=== PATIENT | female | born 1980 | race Two or more races ===

== ENCOUNTER → 2017-04-29 | Outpatient (CLI) | payer OTHER ==
[2017-04-29 17:51] LABS: BASO # 0.1 10^3/uL (0.0-0.2); BASO % 1.2 % (0.0-1.0); EOS # 0.1 10^3/uL (0.0-0.50); EOS % 0.8 % (0.0-3.0); HEMATOCRIT 40.1 % (36.0-47.0); HEMOGLOBIN 12.8 g/dl (12.0-16.0); IMMATURE GRANULOCYTE % 0.3 % (0-3.0); LYMPH # 1.5 10^3/uL (1.5-4.5); LYMPH % 25.3 % (24.0-44.0); MEAN CORPUSCULAR HEMOGLOBIN 26.3 pg (27.0-33.0); MEAN CORPUSCULAR HGB CONC 31.9 g/dl (32.0-36.5); MEAN CORPUSCULAR VOLUME 82.3 fl (80.0-96.0); MONO # 0.4 10^3/uL (0.0-0.8); MONO % 6.3 % (0.0-5.0); NEUTROPHILS # 3.9 10^3/uL (1.8-7.7); NEUTROPHILS % 66.1 % (36.0-66.0); PLATELET COUNT, AUTOMATED 314 10^3/uL (150-450); RED BLOOD COUNT 4.87 10^6/uL (4.00-5.40); RED CELL DISTRIBUTION WIDTH 13.4 % (11.5-14.5); WHITE BLOOD COUNT 5.9 10^3/uL (4.0-10.0)
== END ==
LOC: M ADAMS 14:38
DX: R59.0 Localized enlarged lymph nodes (principal)
CPT/HCPCS: 85025

== ENCOUNTER → 2019-08-11 | Outpatient (CLI) | payer OTHER ==
--- NOTE | 2019-08-11 15:23 | REP ---
REASON: Inversion injury. PRIORS: None. Subtle flake-like ossific densities are seen distal to the distal fibular tip. There is lateral soft tissue swelling. There is a smoothly-marginated, well-corticated ossific density seen distal to the medial malleolus. The mortise is intact. IMPRESSION: 1. Distal fibular avulsion fracture with soft tissue swelling. 2. Old, healed medial malleolar tip fracture versus accessory ossicle. Electronically Signed by Mckay Arellano DO 08/11/2019 03:44 P
== END ==
LOC: M ADAMS 12:49
PROVIDERS: ATTEND Physician Assistant
DX: S89.301A Unspecified physeal fracture of lower end of right fibula, initial encounter for closed fracture (principal); Y92.9 Unspecified place or not applicable; Y93.9 Activity, unspecified; Y99.9 Unspecified external cause status

== ENCOUNTER 2022-08-18 14:22 | Emergency (ER) | payer OTHER ==
[~2022-08-18] VITALS: Ht 162.6 cm; Wt 67.3 kg
[2022-08-18 14:23] VITALS: BP 135/84; TEMP 98.2; O2SAT 100
[2022-08-18] MEDS ORDERED: LEXA1TAB (15:20)
[2022-08-18] MEDS ORDERED: IBUP200T46 PO (15:20)
[2022-08-18] MEDS ORDERED: OMEP-173 (15:20)
[2022-08-18] MEDS ORDERED: JANU50TA25 (15:20)
[2022-08-18] MEDS ORDERED: LITH150C (15:20)
== END 2022-08-18 17:06 | disposition left against medical advice (07) ==
LOC: M ED 14:22
DX: K08.89 Other specified disorders of teeth and supporting structures (principal); Z53.21 Procedure and treatment not carried out due to patient leaving prior to being seen by health care provider